=== PATIENT | female | born 1985 | race African-American/Black ===

== ENCOUNTER 2017-08-24 13:39 | Emergency (ER) | payer OTHER ==
[2017-08-24] MEDS ORDERED: Ketorolac Tromethamine 30 MG/ML VIAL ONE (14:40)
[2017-08-24] MEDS ORDERED: Metoclopramide HCl 10 MG/2 ML VIAL ONE (14:40)
[2017-08-24] MEDS ORDERED: diphenhydrAMINE 50 MG/ML VIAL ONE (14:40)
[2017-08-24] MEDS ORDERED: Magnesium Sulfate 2 GM/100 ML BAG ONE (15:23)
[2017-08-24] MEDS ORDERED: methylPREDNISolone Sod Succ/PF 125 MG/2 ML VIAL ONE (15:23)
== END 2017-08-24 17:05 | disposition home or self-care (01) ==
LOC: ERS 13:39
DX: R51 Headache (principal)
CPT/HCPCS: 96365; 96367; 96375; J1200; J1885; J2765; J2930; J3475

== ENCOUNTER 2017-10-08 07:52 | Emergency (ER) | payer OTHER ==
[2017-10-08] MEDS ORDERED: Adacel (T-DAP) 0.5 ML VIAL ONE (09:00)
--- NOTE | 2017-10-08 09:50 | RAD ---
LEFT THUMB 3 VIEWS: HISTORY: Thumb pain. COMPARISON: None. FINDINGS: No acute displaced fracture or malalignment. Punctate round density along the volar aspect of the mi d interphalangeal joint may be a small capsular calcification. IMPRESSION: No acute displaced fracture or malalignment. POS: [facility]
== END 2017-10-08 09:08 | disposition home or self-care (01) ==
LOC: ERS 07:52
DX: S90.812A Abrasion, left foot, initial encounter (principal); M79.645 Pain in left finger(s); G43.909 Migraine, unspecified, not intractable, without status migrainosus; W01.198A Fall on same level from slipping, tripping and stumbling with subsequent striking against other object, initial encounter
CPT/HCPCS: 29125; 90471; 90715

== ENCOUNTER 2017-12-16 20:20 | Emergency (ER) | payer OTHER ==
[2017-12-16] MEDS ORDERED: Metoclopramide HCl 10 MG TAB ONE (22:43)
[2017-12-16] MEDS ORDERED: Ketorolac Tromethamine 60 MG/2 ML VIAL ONE (22:43)
== END 2017-12-17 00:30 | disposition home or self-care (01) ==
LOC: ERS 20:20
DX: R51 Headache (principal)
CPT/HCPCS: 96372; J1885

== ENCOUNTER 2018-03-07 12:31 | Emergency (ER) | payer OTHER ==
[2018-03-07] MEDS ORDERED: Ketorolac Tromethamine 60 MG/2 ML VIAL ONE (13:18)
== END 2018-03-07 13:31 | disposition home or self-care (01) ==
LOC: ERS 12:31
DX: R51 Headache (principal)
CPT/HCPCS: 96372; J1885

== ENCOUNTER 2018-04-02 10:32 | Emergency (ER) | payer OTHER ==
[2018-04-02 11:17] LABS: #Eosinphils 0.1 thou/uL (0.0-0.7); #Lymphocytes 1.9 thou/uL (1.20-3.40); #Monocytes 0.5 thou/uL (0.11-0.59); #Neutrophils 5.4 thou/uL (1.40-6.50); %Basophils 0.3 % (0.0-1.0); %Eosinophils 0.9 % (0.0-10.0); %Lymphocytes 23.8 % (21.0-51.0); %Monocytes 6.3 % (0.0-10.0); %Neutrophils 68.7 % (42.0-75.0); Hemoglobin 13.5 g/dL (12.0-16.0); Mean Corpuscular HGB CONC 31.8 g/dL (32.0-36.0); Mean Corpuscular Hemoglobin 29.9 pg (27.0-31.0); Mean Corpuscular Volume 94.1 fL (78.0-98.0); Mean Platelet Volume 8.2 fL (7.4-10.4); Platelet Count 205 thou/uL (130-400); RBC Distribution Width 10.8 % (11.5-14.5); Red Blood Cell (RBC) Count 4.51 mill/uL (4.20-5.40); White Blood Cell (WBC) Count 7.9 thou/uL (4.8-10.8)
[2018-04-02 12:01] LABS: Bilirubin Small (Negative); Blood, Urine Negative (Negative); Clarity CLOUDY (Clear); Glucose, Urine (Dipstick) Negative (Negative); Leukocyte Negative (Negative); Nitrite Negative (Negative); Protein, Urine (Dipstick) Negative (Neg-Trace); Specific Gravity, Urine 1.026 (1.002-1.036)
[2018-04-02] MEDS ORDERED: Ondansetron HCl/PF 4 MG/2 ML Vial ONE (12:04)
[2018-04-02 12:06] LABS: ALT (SGPT) 79 U/L (8-55); AST (SGOT) 22 U/L (5-34); Albumin 3.6 g/dL (3.5-5.0); Alkaline Phosphatase 62 U/L (40-150); Anion Gap 10 mmol/L (10-20); BUN (Urea Nitrogen) 8 mg/dL (7.0-18.7); Bilirubin, Total 0.7 mg/dL (0.2-1.2); Calc. Creatinine Clearance 0 mL/min (70-130); Calcium 9.1 mg/dL (7.8-10.44); Carbon Dioxide 25 mmol/L (22-29); Chloride 112 mmol/L (98-107); Estimated GFR-MDRD Greater than 90; Globulin 2.3 g/dL (2.4-3.5); Glucose 81 mg/dL (70-105); Lipase 8 U/L (8-78); Potassium 4.1 mmol/L (3.5-5.1); Protein, Total 5.9 g/dL (6.0-8.3); Sodium 143 mmol/L (136-145)
[2018-04-02 12:06] LABS: Pregnancy Test - Urine (BHCG) Negative (Negative); Pregu Control Background? CLEAR/WHITE (CLR/WHITE); Pregu Control Bar Appear? YES (CONTROL BAR); Specific Gravity 1.026 (1.002-1.036)
--- NOTE | 2018-04-02 13:49 | RAD ---
KUB AND UPRIGHT: HISTORY: Abdominal pain. FINDINGS: The bowel gas pattern is nonobstructed. No free air. No radiopaque calculi. There are calcificatio ns of the pelvis, but they are felt to represent phleboliths. PA CHEST: Heart size and mediastinum are within normal limits. The lungs are clear of infiltrates. IMPRESSION: No active intrathoracic disease. POS: [facility]
== END 2018-04-02 14:30 | disposition home or self-care (01) ==
LOC: ERS 10:32
DX: K59.00 Constipation, unspecified (principal); G43.909 Migraine, unspecified, not intractable, without status migrainosus
CPT/HCPCS: 36415; 74022; 80053; 81003; 81025; 83690; 85025; 96361; 96374; J2405

== ENCOUNTER 2018-04-03 18:53 | Emergency (ER) | payer OTHER ==
[2018-04-03] MEDS ORDERED: Promethazine HCl 25 MG/ML VIAL ONE (19:50)
[2018-04-03] MEDS ORDERED: Ketorolac Tromethamine 30 MG/ML VIAL ONE (19:50)
[2018-04-03] MEDS ORDERED: diphenhydrAMINE 50 MG/ML VIAL IVP PRN (19:56)
[2018-04-03] MEDS ORDERED: Sodium Chloride 0.9% 0 ML ONE (20:18)
== END 2018-04-04 00:25 | disposition home or self-care (01) ==
LOC: ERS 18:53
DX: R51 Headache (principal)
CPT/HCPCS: 96361; 96365; 96375; J1200; J1885; J2550; J7050

== ENCOUNTER 2018-06-05 07:08 | Emergency (ER) | payer OTHER ==
[2018-06-05] MEDS ORDERED: Acetaminophen 500 MG TAB ONE (08:59)
[2018-06-05] MEDS ORDERED: Ketorolac Tromethamine 30 MG/ML VIAL ONE (08:59)
== END 2018-06-05 09:20 | disposition home or self-care (01) ==
LOC: ERS 07:08
DX: R51 Headache (principal)
CPT/HCPCS: 96372; J1885

== ENCOUNTER 2018-06-07 06:19 | Emergency (ER) | payer OTHER ==
[2018-06-07] MEDS ORDERED: diphenhydrAMINE 50 MG/ML VIAL ONE (07:17)
[2018-06-07] MEDS ORDERED: Metoclopramide HCl 10 MG/2 ML VIAL ONE (07:17)
[2018-06-07] MEDS ORDERED: Ketorolac Tromethamine 30 MG/ML VIAL ONE (07:17)
[2018-06-07] MEDS ORDERED: methylPREDNISolone Sod Succ/PF 125 MG/2 ML VIAL ONE (08:46)
[2018-06-07] MEDS ORDERED: Water For Inject, Bacteriostat 30 ML ONE (08:46)
[2018-06-07] MEDS ORDERED: Magnesium 2 GM/50 ML BAG (IN WATER) ONE (08:49)
== END 2018-06-07 10:00 | disposition home or self-care (01) ==
LOC: ERS 06:19
DX: R51 Headache (principal)
CPT/HCPCS: 96361; 96365; 96375; J1200; J1885; J2765; J2930

== ENCOUNTER 2018-08-10 15:46 | Emergency (ER) | payer OTHER ==
--- NOTE | 2018-08-10 17:04 | RAD ---
RIGHT FOOT 3 VIEWS: Date: 08/10/18 HISTORY: Right foot injury. Stepped on a nail. FINDINGS: Lisfranc joint alignment is anatomic. Plantar arch is maintained. No acute fracture, dislocation, or metallic foreign bodies are apparent. IMPRESSION: No acute osseous abnormalities are demonstrated. POS: [facility]
== END 2018-08-10 17:46 | disposition home or self-care (01) ==
LOC: ERS 15:46
DX: S91.331A Puncture wound without foreign body, right foot, initial encounter (principal); G43.909 Migraine, unspecified, not intractable, without status migrainosus; W45.0XXA Nail entering through skin, initial encounter

== ENCOUNTER 2019-03-23 06:13 | Emergency (ER) | payer OTHER ==
[2019-03-23] MEDS ORDERED: Metoclopramide HCl 10 MG/2 ML VIAL ONE (07:45)
[2019-03-23] MEDS ORDERED: Ketorolac Tromethamine 30 MG/ML VIAL ONE (07:45)
[2019-03-23] MEDS ORDERED: diphenhydrAMINE 50 MG/ML VIAL ONE (07:45)
== END 2019-03-23 08:55 | disposition home or self-care (01) ==
LOC: ERS 06:13
DX: G43.909 Migraine, unspecified, not intractable, without status migrainosus (principal)
CPT/HCPCS: 96365; 96375; J1200; J1885; J2765

== ENCOUNTER 2019-04-04 09:34 | Emergency (ER) | payer OTHER ==
[2019-04-04] MEDS ORDERED: Ibuprofen 800 MG TAB ONE (11:42)
[2019-04-04] MEDS ORDERED: diphenhydrAMINE 50 MG/ML VIAL ONE (11:42)
[2019-04-04] MEDS ORDERED: Metoclopramide HCl 10 MG/2 ML VIAL ONE (11:42)
== END 2019-04-04 13:02 | disposition home or self-care (01) ==
LOC: ERS 09:34
DX: R51 Headache (principal)
CPT/HCPCS: 96361; 96374; J1200; J2765

== ENCOUNTER 2019-04-30 07:39 | Outpatient (CLI) | payer OTHER ==
--- NOTE | 2019-04-30 08:44 | CT ---
CT ANGIOGRAM OF THE HEAD: DATE: 04/30/2019. HISTORY: Migraine headaches. TECHNIQUE: Axial CT imaging at 5 mm intervals from the skull base through the vertex without contrast. Axial CT imaging then performed at 2 mm intervals from skull base through vertex with IV contrast using CT angiogram protocol. Coronal and sagittal 3-D reformatted imaging obtained. FINDINGS: Noncontrast enhanced head CT demonstrates no intracranial hemorrhage, midline shift, mass effect, or ventricular enlargement. The imaged paranasal sinuses/mastoid air cells are well aerated. No acute osseous abnormality is note d. Postcontrast imaging demonstrates patency of the imaged distal vertebral arteries. The basilar artery is relatively hypoplastic with patent bilateral posterior communicating arteries noted. No saccular aneurysm, high-grade stenosis, or vascular occlusion is seen involving the posterior circula tion. Imaged portions of the distal cervical ICA unremarkable bilaterally. The A1 segment is hypoplastic on the right. The M1 segment is patent bilaterally. The ICA bifurcation and MCA bifurcation appears unremarkable bilaterally. Distal ALYSSA and MCA branches are intact. No saccular aneurysm, high-grade st enosis, or vascular occlusion is seen involving the anterior circulation. IMPRESSION: Unremarkable CT angiogram of the head. Transcribed Date/Time: 04/30/2019 8:53 AM
== END 2019-04-30 07:40 | disposition home or self-care (01) ==
LOC: BICCT 07:39
PROVIDERS: ATTEND Nurse Practitioner Acute Care
DX: G43.109 Migraine with aura, not intractable, without status migrainosus (principal)
CPT/HCPCS: 70496

== ENCOUNTER 2020-07-03 14:29 | Emergency (ER) | payer SELFPAY ==
[2020-07-03 22:14] LABS: SARS-CoV-2 MS2 Positive; SARS-CoV-2 N Gene Negative; SARS-CoV-2 S Gene Negative; SARS-CoV-2 by NAA Not Detected (NotDetected); SARS-CoV-2 orf1ab Negative
== END 2020-07-03 14:57 | disposition home or self-care (01) ==
LOC: ERS 14:29
DX: Z20.828 Contact with and (suspected) exposure to other viral communicable diseases (principal); G43.909 Migraine, unspecified, not intractable, without status migrainosus
CPT/HCPCS: 87635; 99283; U0003

== ENCOUNTER 2023-04-30 18:16 | Emergency (ER) | payer OTHER, SELFPAY ==
[2023-04-30] MEDS ORDERED: Acetaminophen 500 MG TAB ONE (20:52)
[2023-04-30] MEDS ORDERED: Metoclopramide HCl 10 MG TAB ONE (20:53)
[2023-04-30 21:16] LABS: #Monocytes 0.4 thou/uL (0.11-0.59); #Neutrophils 8.2 thou/uL (1.40-6.50); %Basophils 0.3 % (0.0-1.0); %Eosinophils 0.3 % (0.0-10.0); %Lymphocytes 13.2 % (21.0-51.0); %Monocytes 4.4 % (0.0-10.0); %Neutrophils 81.3 % (42.0-75.0); Hemoglobin 10.5 g/dL (12.0-16.0); Mean Corpuscular HGB CONC 31.8 g/dL (32.0-36.0); Mean Corpuscular Hemoglobin 30.5 pg (27.0-31.0); Mean Corpuscular Volume 95.9 fl (78.0-98.0); Mean Platelet Volume 9.9 fL (7.4-10.4); Platelet Count 188 10x3/uL (130-400); RBC Distribution Width 11.5 % (11.5-14.5); Red Blood Cell (RBC) Count 3.44 mill/uL (4.20-5.40); White Blood Cell (WBC) Count 10.1 10x3/uL (4.8-10.8)
[2023-04-30 21:31] LABS: BHCG - Serum POSITIVE (NEGATIVE); Pregs Control Background? CLEAR/WHITE (CLR/WHITE); Pregs Control Bar Appear? YES (CONTROL BAR)
[2023-04-30 21:42] LABS: ALT (SGPT) 9 U/L (8-55); AST (SGOT) 11 U/L (5-34); Albumin 3.3 g/dL (3.5-5.0); Alkaline Phosphatase 44 U/L (40-110); Anion Gap 9 mmol/L (10-20); BUN (Urea Nitrogen) 9 mg/dL (7.0-18.7); Bilirubin, Total 0.5 mg/dL (0.2-1.2); Calc. Creatinine Clearance 0 mL/min (70-130); Calcium 8.1 mg/dL (7.8-10.44); Carbon Dioxide 22 mmol/L (22-29); Chloride 107 mmol/L (98-107); Estimated GFR 116; Globulin 2.3 g/dL (2.4-3.5); Glucose 90 mg/dL (70-105); Potassium 3.1 mmol/L (3.5-5.1); Protein, Total 5.6 g/dL (6.0-8.3); Sodium 135 mmol/L (136-145)
[2023-04-30] MEDS ORDERED: Potassium Chloride 20 MEQ TAB ONE (22:31)
== END 2023-04-30 23:06 | disposition home or self-care (01) ==
LOC: ERS 18:16
DX: O99.352 Diseases of the nervous system complicating pregnancy, second trimester (principal); G43.909 Migraine, unspecified, not intractable, without status migrainosus; O99.332 Smoking (tobacco) complicating pregnancy, second trimester; F17.210 Nicotine dependence, cigarettes, uncomplicated; Z3A.21 21 weeks gestation of pregnancy
CPT/HCPCS: 36415; 76805; 80053; 84703; 85025; 96360

== ENCOUNTER 2023-09-10 08:45 | Emergency (ER) | payer MEDICAID, OTHER ==
[2023-09-10] MEDS ORDERED: HYDROcodone/Acetaminophen 5/325 mg Tablet ONE (09:20)
[2023-09-10] MEDS ORDERED: Ibuprofen 800 MG TAB ONE (10:41)
== END 2023-09-10 10:52 | disposition home or self-care (01) ==
LOC: ERS 08:45
DX: M25.561 Pain in right knee (principal); R07.81 Pleurodynia; F17.210 Nicotine dependence, cigarettes, uncomplicated; V89.2XXA Person injured in unspecified motor-vehicle accident, traffic, initial encounter
CPT/HCPCS: 71045